=== PATIENT | female | born 1975 | race Caucasian/White ===

== ENCOUNTER 2021-05-21 21:07 | Emergency (ER) | payer MEDICARE, MEDICAID ==
[~2021-05-21] VITALS: Ht 167.6 cm; Wt 79.0 kg
[~2021-05-21 21:07] MED LIST: ABILIFY30 MG OR; ADDERALL10 MG PO; ADDERALL15 MG PO; ADDERALL20 MG OR; AMBIEN10 MG PO; AMOXICILLIN500 MG OR; AMOXICILLIN500 MG PO; AMOXICILLIN875 MG OR; ATARAX; ATARAX PO; ATIVAN1 MG PO; BACTRIM DS1 TAB PO; BUSPAR10 MG PO; CIPRO500 MG OR; CIPROFLOXACN500 MG PO; CLONIDINE0.1 MG PO; COGENTIN0.5 MG OR; DARVOCET N-100100 - OR; DOXYCYCL HYC100 M4 PO; FLAGYL500 MG OR; FLAGYL500 MG PO; HYDROXYZ H10 MG/5 ML OR; KLONOPIN0.5 MG PO; KLONOPIN1 MG OR; KLONOPIN1 MG PO; KLONOPIN2 MG OR; LATUDA40 MG PO; LITHIUM CARB300 MG OR; LITHIUM CARB600 MG OR; LITHIUM CARB600 MG PO; LITHIUM CARBON300 M1 OR; LORTAB 10 PO; LORTAB 5/3255 MG PO; LORTAB 7.57.5 MG PO; LUNESTA3 MG PO; MACRODANTIN100 MG OR; NEURONTIN300 MG PO; PHENERGAN SUPP RE; PREVACID30 M2 PO; PROMETHAZINE25 MG OR; SAPHRIS5 MG SL; SEROQUEL XR400 MG OR; SEROQUEL200 MG PO; SEROQUEL400 MG OR; TRAZODONE150 MG PO; WELLBUTRIN SR150 MG PO; YASMIN 281 TAB OR; YAZ1 TAB OR; ZPAK PO; ZYPREXA OR; ZYPREXA20 MG OR; ZYRTEC10 M2 PO; lithium OR
[2021-05-21 21:35] VITALS: BP 129/90
[2021-05-21 22:00] VITALS: BP 135/89
[2021-05-21 22:14] LABS: HEMATOCRIT 40.8 % (37.0-47.0); HEMOGLOBIN 13.2 g/dl (12.0-16.0); IMMATURE GRANULOCYTES 0.2 % (0.0-5.0); MEAN CELL VOLUME 93.2 fL CALC (80.0-100.0); MEAN CORPUSCULAR HGB 30.1 pG CALC (26.0-32.0); MEAN CORPUSCULAR HGB CONC 32.4 g/dL CAL (32.0-36.0); NEUT# 5.74 thou/uL (2.00-7.15); RED BLOOD COUNT 4.38 mill/uL (4.20-5.60)
--- NOTE | 2021-05-21 22:18 | NUR ---
BREATHING TX GIVEN BACK TO BACK.
[2021-05-21 22:28] LABS: HCG SERUM/URINE (NEG/POS) NEGATIVE (NEGATIVE)
[2021-05-21 22:32] LABS: ALBUMIN 4.1 g/dL (3.2-5.0); ALKALINE PHOSPHATASE 67 u/l (38-126); ANION GAP 14 (6-22 (CALC)); BILIRUBIN, TOTAL 0.3 mg/dL (0.0-1.4); BUN 6 mg/dL (7-17); BUN/CREATININE RATIO 8 (12-20 (CALC)); CARBON DIOXIDE 25 mmol/l (22-30); CHLORIDE 100 mmol/l (95-108); CREATININE 0.7 mg/dL (0.5-1.0); GFR > 60 ML/MIN (>=60 (CALC)); GFR FOR AFR.AMER. > 60 ML/MIN (>=60 (CALC)); LIPASE 26 u/l (23-300); POTASSIUM 3.8 mmol/l (3.5-5.1); SGOT/AST 30 u/l (14-36); SODIUM 135 mmol/l (137-146); TOTAL PROTEIN 7.9 g/dL (6.3-8.2)
[2021-05-21 23:38] VITALS: BP 101/70
[2021-05-22 00:26] VITALS: BP 105/70
[2021-05-22 00:30] VITALS: BP 109/76
[2021-05-22] MEDS ORDERED: ZPAK PO (00:36)
[2021-05-22] MEDS ORDERED: VENTOLIN HFA IN (00:36)
[2021-05-22] MEDS ORDERED: DECADRON2 MG PO (00:36)
[2021-05-22 00:38] VITALS: BP 109/76
== END 2021-05-22 00:45 | disposition home or self-care (01) ==
LOC: ED 21:07
DX: J45.909 Unspecified asthma, uncomplicated (principal); F31.9 Bipolar disorder, unspecified; E24.9 Cushing's syndrome, unspecified; F17.200 Nicotine dependence, unspecified, uncomplicated; Z86.16 Personal history of COVID-19; Z20.822 Contact with and (suspected) exposure to COVID-19
CPT/HCPCS: Q9967

== ENCOUNTER 2021-09-08 12:10 | Emergency (ER) | payer MEDICARE, MEDICAID ==
[2021-09-08] VITALS (9 sets, daily range): BP systolic 88–104; BP diastolic 60–76
[~2021-09-08] VITALS: Ht 167.6 cm; Wt 85.0 kg
[~2021-09-08 12:10] MED LIST changes: +DECADRON2 MG PO; +VENTOLIN HFA IN
== END 2021-09-08 15:05 | disposition home or self-care (01) ==
LOC: ED 12:10
PROC: 2W3QX1Z Immobilization of Right Lower Leg using Splint (ICD-10-PCS; principal; 2021-09-08)
DX: M25.571 Pain in right ankle and joints of right foot (principal); E24.9 Cushing's syndrome, unspecified; F31.9 Bipolar disorder, unspecified; F17.200 Nicotine dependence, unspecified, uncomplicated; W01.0XXA Fall on same level from slipping, tripping and stumbling without subsequent striking against object, initial encounter; Y92.009 Unspecified place in unspecified non-institutional (private) residence as the place of occurrence of the external cause

== ENCOUNTER 2021-12-16 20:56 | Emergency (ER) | payer MEDICARE, MEDICAID ==
[~2021-12-16] VITALS: Ht 167.6 cm; Wt 81.8 kg
[2021-12-16] MEDS ORDERED: TRILEPTAL600 M1 PO (21:25)
[2021-12-16] MEDS ORDERED: TRILEPTAL300 M1 PO (21:25)
[2021-12-16] MEDS ORDERED: BACTRIM DS1 TAB PO (22:49)
[2021-12-16 22:52] VITALS: BP 127/90
== END 2021-12-16 23:03 | disposition home or self-care (01) ==
LOC: ED 20:56
PROC: 0H91XZZ Drainage of Face Skin, External Approach (ICD-10-PCS; principal; 2021-12-16)
DX: L02.01 Cutaneous abscess of face (principal); F31.9 Bipolar disorder, unspecified; E24.9 Cushing's syndrome, unspecified; F17.210 Nicotine dependence, cigarettes, uncomplicated

== ENCOUNTER 2021-12-19 02:03 | Emergency (ER) | payer MEDICARE, MEDICAID ==
[~2021-12-19] VITALS: Ht 167.6 cm; Wt 81.8 kg
[~2021-12-19 02:03] MED LIST changes: +TRILEPTAL300 M1 PO; +TRILEPTAL600 M1 PO
[2021-12-19 02:18] VITALS: BP 124/71
[2021-12-19 02:30] VITALS: BP 123/71
[2021-12-19] MEDS ORDERED: LORTAB 1010 MG PO (02:44)
[2021-12-19 02:47] VITALS: BP 123/71
== END 2021-12-19 02:55 | disposition home or self-care (01) ==
LOC: ED 02:03
DX: Z48.01 Encounter for change or removal of surgical wound dressing (principal); E24.9 Cushing's syndrome, unspecified; F31.9 Bipolar disorder, unspecified; F17.200 Nicotine dependence, unspecified, uncomplicated